=== PATIENT | female | born 1970 | race Two or more races ===

== ENCOUNTER 2024-05-02 15:03 | Emergency (ER) | payer SELFPAY ==
[~2024-05-02] VITALS: Ht 152.4 cm; Wt 56.3 kg
--- NOTE | 2024-05-02 15:21 | ECG ---
[facility] Test Date: 2024-05-02 Test Time: 15:17:19 Pat Name: DALTON ZAMBRANO Department: ER Room: Gender: F Dross Skimmer: FELICE : 1970 Requested By: KAMILA BARRETT Order Number: [id number] Reading MD: Justus Varela Measurements Intervals Albert Rate: 86 P: 28 ME: 130 QRS: 2 QRSD: 86 T: 0 QT: 365 QTc: 437 Interpretive Statements Sinus rhythm Low voltage, precordial leads Borderline T abnormalities, anterior leads Electronically Signed On 05-02-2024 17:26:10 PST by Justus Varela Please click the below link to view image of tracing.
--- NOTE | 2024-05-02 15:27 | ED.PDOC ---
History of Present Illness HPI Comments 53F presents to the ER w/ no prior Hx associated to the c/c of N/V/D. Pt reports that the N/V/D, started on Sunday and ended on Sunday but she is currently having epigastric ABD pain which radiates to the back and is associated w/ chills and dizziness for the past 2 days. Pt states that she is unable to go to bed and that her had /D since Sunday. Pt notes on having similar symptoms 18 years ago. PMHx of arthritis. Denies chills, fever, N/V/D, SOB, CP or other associated symptom's, modifiers, or recent injuries or sick contact at this time. 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 History Family History Family History: Reviewed,noncontributory to illness, Unknown Social History Smoker: Non-Smoker Alcohol: Denies ETOH Use Drugs: Denies Drug Use Lives In: Home Constitutional: denies: chills, diaphoresis, fatigue, fever, malaise, sweats, weakness, others EENTM: denies: blurred vision, double vision, ear bleeding, ear discharge, ear drainage, ear pain, ear ringing, eye pain, eye redness, hearing loss, mouth pain, mouth swelling, nasal discharge, nose bleeding, nose congestion, nose pain, photophobia, tearing, throat pain, throat swelling, voice changes, others Respiratory: denies: cough, hemoptysis, orthopnea, SOB at rest, shortness of breath, SOB with excertion, stridor, wheezing, others Cardiovascular: reports: chest pain; denies: dizzy spells, diaphoresis, Dyspnea on exertion, edema, irregular heart beat, left arm pain, lightheadedness, palpitations, PND, syncope, others Gastrointestinal: reports: diarrhea, nausea, vomiting; denies: abdomen distended, abdominal pain, blood streaked bowels, constipated, dysphagia, difficulty swallowing, hematemesis, melena, poor appetite, poor fluid intake, rectal bleeding, rectal pain, others Genitourinary: denies: abnormal vagina bleeding, burning, dyspareunia, dysuria, flank pain, frequency, hematuria, incontinence, pain, , vagina discharge, urgency, others Neurological: reports: dizziness; denies: fainting, headache, left sided numbness, left sided weakness, numbness, paresthesia, pre-existing deficit, right sided numbness, right sided weakness, seizure, speech problems, tingling, tremors, weakness, others Musculoskeletal: reports: back pain; denies: gout, joint pain, joint swelling, muscle pain, muscle stiffness, neck pain, others Integumetry: denies: bruises, change in color, change in hair/nails, dryness, laceration, lesions, lumps, rash, wounds, others Allergic/Immunocompromised: denies: Difficulty Healing, Frequent Infections, Hives, Itching, others Hematologic/Lymphatic: denies: anemia, blood clots, easy bleeding, easy bruising, swollen glands, others Endocrine: denies: excessive hunger, excessive sweating, excessive thirst, excessive urination, flushing, intolerance to cold, intolerance to heat, unexplained weight gain, unexplained weight loss, others Psychiatric: denies: anxiety, bipolar disorder, depression, hopeless, panic disorder, schizophrenia, sleepless, suicidal, others All Other Systems: Reviewed and Negative Physical Exam General Appearance: Mild Distress HEENT: Normal ENT Inspection, Pharynx Normal, TMs Normal Neck: Full Range of Motion, Non-Tender, Normal, Normal Inspection Respiratory: Chest Non-Tender, Lungs Clear, No Accessory Muscle Use, No Respiratory Distress, Normal Breath Sounds Cardiovascular: No Edema, No JVD, No Murmur, No Gallop, Normal Peripheral Pulses, Regular Rate/Rhythm Breast Exam: Deferred Gastrointestinal: Guarding, No Organomegaly, No Pulsatile Mass, Normal Bowel Sounds, Soft, Tenderness Genitalia: Deferred Pelvic: Deferred Rectal: Deferred Extremities: No calf tenderness, Normal capillary refill, Normal inspection, Normal range of motion, Non-tender, No pedal edema Musculoskeletal : Apperance: Normal Neurologic: Alert, slag skimmer II-XII nml as Tested, No Motor Deficits, Normal Affect, Normal Mood, No Sensory Deficits Cerebellar Function: Normal Reflexes: Normal Skin: Dry, Normal Color, Warm Lymphatic: No Adenopathy Was a procedure done? Was a procedure done?: No EKG EKG : Pulse Rate (adult): 86 [place]: Normal Cardiac Rhythm: NSR Block: None Hypertrophy: None ST: Normal Differential Dx Considerations may include: Gallstones, gastritis, generalized weakness X-Ray, Labs, Meds, VS Vital Signs Date Time Temp Pulse Resp B/P (MAP) Pulse Ox O2 Delivery O2 Flow Rate FiO2 05/02/24 18:04 83 18 97 Room Air* 0 21 05/02/24 16:25 98.6 83 16 132/77 (95) 99 98.6 05/02/24 16:25 83 16 99 Room Air 05/02/24 15:27 86 05/02/24 15:17 86 05/02/24 15:15 98.2 90 20 147/60 (89) 99 Lab Test 05/02/24 16:30 05/02/24 15:41 Range/Units Urine Color Light-yellow Yellow Urine Clarity Clear Clear Urine pH 7.0 5.0-9.0 Urine Specific [place] 1.010 1.001-1.035 Urine Protein Negative Negative Urine Ketones Negative Negative Urine Blood Negative Negative /uL Urine Nitrite Negative Negative Urine Bilirubin Negative Negative Urine Urobilinogen Normal Negative mg/dL Urine Leukocyte Esterase Negative Negative /uL Urine RBC 5 0 - 4 /hpf Urine Microscopic WBC 1 0-5 /HPF Urine Squamous Epithelial Cells Few <5 /hpf Urine Bacteria Few H None Seen /hpf Urine Glucose Normal Normal mg/dL White Blood Count 7.7 4.4-10.8 10^3/uL Red Blood Count 4.21 4.0-5.20 10^6/uL Hemoglobin 13.7 12.2-16.2 g/dL Hematocrit 40.4 36.0-46.0 % Mean Corpuscular Volume 95.8 80.0-100.0 fL Mean Corpuscular Hemoglobin 32.4 H 28.0-32.0 pg Mean Corpuscular Hemoglobin Concent 33.9 32.0-36.0 g/dL Red Cell Distribution Width 14.1 11.8-14.3 % Platelet Count 294 140-450 10^3/uL Mean Platelet Volume 9.0 6.9-10.8 fL Neutrophils (%) (Auto) 63.9 37.0-80.0 % Lymphocytes (%) (Auto) 25.5 10.0-50.0 % Monocytes (%) (Auto) 8.2 0.0-12.0 % Eosinophils (%) (Auto) 2.1 0.0-7.0 % Basophils (%) (Auto) 0.3 0.0-2.0 % Neutrophils # (Auto) 4.9 1.6-8.6 10 ^3/uL Lymphocytes # (Auto) 2.0 0.4-5.4 10 ^3/uL Monocytes # (Auto) 0.6 0-1.3 10 ^3/uL Eosinophils # (Auto) 0.2 0-0.8 10 ^3/uL Basophils # (Auto) 0 0-0.2 10 ^3/uL Nucleated Red Blood Cells 0.2 % Sodium Level 137 136-145 mmol/L Potassium Level 3.6 3.5-5.1 mmol/L Chloride Level 105 98-107 mmol/L Carbon Dioxide Level 27 20-31 mmol/L Anion Gap 5 5-15 Blood Urea Nitrogen 10 9-23 mg/dL Creatinine 0.71 0.550-1.02 mg/dL Glomerular Filtration Rate Calc 102 >90 mL/min BUN/Creatinine Ratio 14.1 10.0-20.0 Serum Glucose 90 74-106 mg/dL Calcium Level 9.0 8.7-10.4 mg/dL Total Bilirubin 0.6 0.2-1.0 mg/dL Aspartate Amino Transferase (AST) 26 13-40 U/L Alanine Aminotransferase (ALT) 18 7-40 U/L Alkaline Phosphatase 51 46-116 U/L Total Protein 6.4 5.7-8.2 g/dL Albumin 3.9 3.2-4.8 g/dL Lipase 54 H 12-53 U/L Current Medications Medications (Trade) Dose Ordered Sig/Cailin Route Start Time Stop Time Status Last Admin Pantoprazole Sodium (Protonix Tablet) 40 mg ONCE ONCE PO 05/02/24 15:30 05/02/24 15:31 DC 05/02/24 16:23 Ondansetron HCl (Zofran Po) 4 mg ONCE ONCE PO 05/02/24 15:30 05/02/24 15:31 DC 05/02/24 16:23 Ultrasound of the gallbladder is negative The CBC and chemistry panel are within normal limits The lipase is 54 The patient was given Protonix here in the emergency department's The patient was also given Zofran The patient's pain has decreased somewhat The patient is being discharged The patient will follow up with the primary care doctor The patient will return to the emergency department's condition worsens. Images Reviewed?: Images reviewed and evaluated by me Time of 1ST Reevaluation: 15:45 Reevaluation 1ST: Unchanged Patient Education/Counseling: Diagnosis, Treatment, Prognosis, Need For Follow Up Family Education/Counseling: No Family Present Departure 1 Departure Time of Disposition: 18:07 Impression: Primary Impression: Acute gastritis Qualified Codes: K29.00 - Acute gastritis without bleeding Disposition: 01 HOME / SELF CARE / HOMELESS Condition: Fair Discharged With: Self Critical Care Note Critical Care Time?: No Stability Stability form required: No Heart Score Heart Score: Heart Score Response (Comments) Value History N/A 0 EKG N/A 0 Age N/A 0 Risk Factors N/A 0 Troponin N/A 0 Total 0 I personally scribed for KAMILA BARRETT MD ([email or web address]) on 05/02/24 at 15:27. Electronically submitted by Hair Grayson ([email or web address]). KAMILA BARRETT MD May 02, 2024 15:27
--- NOTE | 2024-05-02 15:58 | DVH ---
ULTRASOUND ABDOMEN LIMITED INDICATION: pain TECHNIQUE: Multiple real-time sonographic images of the abdomen were obtained. COMPARISON: None FINDINGS: The visualized liver parenchyma appears homogenous . The liver measures 11.6 cm. No discrete h epatic lesion or intrahepatic biliary ductal dilatation is identified. There is no evidence of gallstones, gallbladder wall thickening or pericholecystic fluid. The common biliary duct is not dilated. The right kidney measures 9.0 cm length. There is a 1.1 cm right upper pole renal cyst. No sonograp hic evidence of nephrolithiasis or hydronephrosis. Visualized portions of the pancreas appears within normal limits. IMPRESSION: 1. Unremarkable righ upper quadrant ultrasound. HS:Y
[2024-05-02 16:04] LABS: Basophils # (auto) 0 10 ^3/uL (0-0.2); Basophils % (auto) 0.3 % (0.0-2.0); Eosinophils # (auto) 0.2 10 ^3/uL (0-0.8); Eosinophils % (auto) 2.1 % (0.0-7.0); Hematocrit 40.4 % (36.0-46.0); Hemoglobin 13.7 g/dL (12.2-16.2); Lymphocytes % (auto) 25.5 % (10.0-50.0); Mean Corpuscular Hemoglobin 32.4 pg (28.0-32.0); Mean Corpuscular Hgb Conc. 33.9 g/dL (32.0-36.0); Mean Corpuscular Volume 95.8 fL (80.0-100.0); Monocytes # (auto) 0.6 10 ^3/uL (0-1.3); Monocytes % (auto) 8.2 % (0.0-12.0); Neutrophils # (auto) 4.9 10 ^3/uL (1.6-8.6); Neutrophils % (auto) 63.9 % (37.0-80.0); Nucleated Red Blood Cells % 0.2 %; Platelet Count (auto) 294 10^3/uL (140-450); Red Blood Cells 4.21 10^6/uL (4.0-5.20); Red Cell Distribution Width 14.1 % (11.8-14.3); White Blood Cell 7.7 10^3/uL (4.4-10.8)
[2024-05-02 16:19] LABS: Alanine Aminotransferase 18 U/L (7-40); Albumin 3.9 g/dL (3.2-4.8); Alkaline Phosphatase 51 U/L (46-116); Anion Gap 5 (5-15); Aspartate Aminotransferase 26 U/L (13-40); BUN/Creatinine Ratio 14.1 (10.0-20.0); Bilirubin, Total 0.6 mg/dL (0.2-1.0); Blood Urea Nitrogen 10 mg/dL (9-23); Carbon Dioxide 27 mmol/L (20-31); Chloride 105 mmol/L (98-107); Glucose 90 mg/dL (74-106); Potassium 3.6 mmol/L (3.5-5.1); Sodium 137 mmol/L (136-145); Total Protein 6.4 g/dL (5.7-8.2)
[2024-05-02 16:23] LABS: Lipase 54 U/L (12-53)
[2024-05-02] MEDS: PANTOPRAZOLE 40 MG TAB PO ONE (16:23)
[2024-05-02] MEDS: ONDANSETRON ODT 4 MG TAB PO ONE (16:23)
[2024-05-02 17:30] LABS: Urine Bacteria FEW /hpf (None Seen); Urine Blood Negative /uL (Negative); Urine Clarity Clear (Clear); Urine Color Light-Yellow (Yellow); Urine Protein, UAD Negative (Negative); Urine Squamous Epithelial Cell FEW /hpf (<5); Urine Urobilinogen Normal (Negative); Urine WBC 1 /HPF (0-5)
[2024-05-02 18:04] VITALS: PULSE 83; RESP 18; O2SAT 97
[2024-05-02 18:18] VITALS: BP 120/65; PULSE 92; RESP 16; TEMP 98.2; O2SAT 99
== END 2024-05-02 18:19 | disposition home or self-care (01) ==
LOC: ER 15:03
DX: K29.00 Acute gastritis without bleeding (principal)
CPT/HCPCS: 36415; 76705; 80053; 81001; 83690; 85025; 93005; 99285; Q0162